=== PATIENT | male | born 1980 | race Caucasian/White ===

== ENCOUNTER → 2021-07-06 | Outpatient (CLI) | payer OTHER ==
[~2021-07-06] MED LIST: IBUPROFEN800 MG PO; KEFLEX CAP 500500 MG PO; PERCOCET 5/325 T1 EA PO; ZYLOPRIM 100 M100 MG PO
== END ==
LOC: SLEEP 15:02
DX: G47.33 Obstructive sleep apnea (adult) (pediatric) (principal)
CPT/HCPCS: 95810